=== PATIENT | male | born 1975 | race Caucasian/White ===

== ENCOUNTER → 2018-11-17 | Outpatient (CLI) | payer BC ==
--- NOTE | 2018-11-17 17:17 | CT ---
EXAMINATION TYPE: CT angio chest DATE OF EXAM: 11/17/2018 5:00 PM COMPARISON: None HISTORY: Dyspnea x1 week, low d-dimer lab results. Pt denies any cardiac history CT DLP: 553.30 mGycm Automated exposure control for dose reduction was used. CONTRAST: CTA scan of the thorax is performed with IV Contrast, patient injected with 100 mL of Isovue 370, pul monary embolism protocol. There are 3-D post processed images.. FINDINGS: The lungs are clear of infiltrate. There is no evidence of pleural effusion or pneumothorax. There is no evidence of a pulmonary mass. Heart size is normal. There is no pericardial effusion. There are n o hilar masses. There is no mediastinal adenopathy. There are calcified granulomata in the mediastinu m. There is normal contrast opacification of the pulmonary arteries. I see no filling defects. Thoracic aorta appears normal without evidence of aneurysm or dissection. There is decreased attenuation the l iver consistent with fatty infiltration. The bony thorax appears intact. There is some nodular enhanc ement in the posterior superior liver. IMPRESSION: NO EVIDENCE OF PULMONARY EMBOLISM. OLD GRANULOMATOUS DISEASE. FATTY INFILTRATION OF THE LIVER. 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
== END ==
LOC: RADCTMAIN 16:17
PROVIDERS: ATTEND Family Medicine
DX: R06.00 Dyspnea, unspecified (principal)
CPT/HCPCS: 71275; Q9967

== ENCOUNTER → 2018-12-08 | Outpatient (CLI) | payer BC ==
--- NOTE | 2018-12-08 13:08 | US ---
EXAMINATION TYPE: US abdomen complete DATE OF EXAM: 12/08/2018 COMPARISON: NONE CLINICAL HISTORY: R10.9 Abd pain. Abdominal pain EXAM MEASUREMENTS: Liver Length: 18.0 cm Gallbladder Wall: 0.3 cm CBD: 0.4 cm Spleen: 11.0 cm Right Kidney: 11.9 x 4.7 x 4.8 cm Left Kidney: 11.1 x 5.7 x 4.6 cm Technical limitations due to large amount of overlying bowel content Pancreas: Obscured by bowel gas Liver: attenuating, difficult to penetrate findings can be compatible with moderate fatty infiltrat ion liver. Gallbladder: no evidence of stones. No pericholecystic fluid. Evidence for sonographic Irene's sign: no CBD: appears wnl Spleen: appears wnl Right Kidney: no evidence of hydronephrosis Left Kidney: no evidence of hydronephrosis Upper IVC: wnl Abd Aorta: visualized portions appear wnl IMPRESSION: 1. Moderate fatty infiltration liver and hepatomegaly. 2. Thickened gallbladder wall. No pericholecystic fluid or cholelithiasis is evident. Clinical consid eration for cholecystitis is recommended
--- NOTE | 2018-12-08 15:44 | NM ---
EXAMINATION TYPE: NM hepatobiliary w EF DATE OF EXAM: 12/08/2018 COMPARISON: Ultrasound abdomen 12/08/2018 HISTORY: Abdominal pain TECHNIQUE: After the intravenous administration of 4.33 mCi Tc 99m Mebrofenin hepatobiliary scintigra phy is performed. Immediate images post injection. FINDINGS: There is satisfactory initial accumulation of tracer by the liver. The gallbladder is visualized wit hin 28 minutes. The small bowel activity is noted within a minutes. At one hour 8 ounces of oral en sure plus is given to mimic CCK and gallbladder ejection fraction is calculated at 90 %, above the up per limit of the normal range. Therefore there is no scintigraphic evidence of cystic or common bile duct obstruction to suggest acute cholecystitis. IMPRESSION: Gallbladder ejection fraction somewhat elevated, consider hyperkinesis
== END | disposition home or self-care (01) ==
LOC: RADUSMAIN 12:05
PROVIDERS: ATTEND Family Medicine
DX: K76.0 Fatty (change of) liver, not elsewhere classified (principal); R16.0 Hepatomegaly, not elsewhere classified; K82.8 Other specified diseases of gallbladder
CPT/HCPCS: 76700; 78226; A9537

== ENCOUNTER → 2020-09-30 | Outpatient (CLI) | payer BC ==
[2020-09-30 22:20] LABS: Hepatitis B Core IgM Non-Reactive (Non-Reactive); Hepatitis B Surface AB- Quant 4.5 mIU/mL; Hepatitis B Surface Antibody Non-Reactive (Non-Reactive); Hepatitis B Surface Antigen Non-Reactive (Non-Reactive)
[2020-10-01 13:00] LABS: HLA B27 NEGATIVE
[2020-10-01 14:53] LABS: C-ANCA <1:20 Titer (<1:20)
== END | disposition home or self-care (01) ==
LOC: LABWHC1 13:41
PROVIDERS: ATTEND Internal Medicine Rheumatology
DX: M19.90 Unspecified osteoarthritis, unspecified site (principal); H15.009 Unspecified scleritis, unspecified eye
CPT/HCPCS: 36415; 86141; 86255; 86480; 86704; 86705; 86706; 86812; 87340

== ENCOUNTER → 2020-09-30 | Outpatient (CLI) | payer BC ==
--- NOTE | 2020-09-30 16:11 | XR ---
AP pelvis HISTORY: Back pain Single frontal view of the pelvis Sacroiliac joints show no ankylosis, erosion, or marginal spurring. Bone mineralization, joint spaces and alignment are maintained. Probable vascular calcifications present within the pelvis. IMPRESSION: No acute abnormality.
== END | disposition home or self-care (01) ==
LOC: RADXRMAIN 14:36
PROVIDERS: ATTEND Internal Medicine Rheumatology
DX: M54.9 Dorsalgia, unspecified (principal)
CPT/HCPCS: 72170